=== PATIENT | female | born 1990 | race Caucasian/White ===

== ENCOUNTER 2018-08-26 18:55 | Inpatient (IN) | payer BC, OTHER ==
[~2018-08-26] VITALS: Ht 160 cm; Wt 59.0 kg
[2018-08-28 23:45] VITALS: BP 128/91
[2018-08-29] VITALS (7 sets, daily range): BP systolic 95–136; BP diastolic 58–86
[2018-08-29] MEDS ORDERED: DIAZEPAM 10 MG TABLET PO PRN ×2 (00:15)
[2018-08-29] MEDS ORDERED: ONDANSETRON 4 MG/2 ML VIAL IM PRN (00:15)
[2018-08-29] MEDS ORDERED: LORAZEPAM 2 MG/1 ML VIAL IM PRN (00:15)
[2018-08-29] MEDS ORDERED: MAG HYDROX/AL HYDROX/SIMETH 30 ML LIQUID UDC PO PRN (00:15)
[2018-08-29] MEDS ORDERED: MAGNESIUM HYDROXIDE 30 ML LIQUID UDC PO PRN (00:15)
[2018-08-29] MEDS ORDERED: diphenhydrAMINE 50 MG CAPSULE PO PRN (00:15)
[2018-08-29] MEDS ORDERED: DIAZEPAM 5 MG TABLET PO PRN (00:15)
[2018-08-29] MEDS ORDERED: DICYCLOMINE HCL 20 MG TABLET PO PRN (00:15)
[2018-08-29] MEDS ORDERED: LOPERAMIDE HCL 2 MG CAPSULE PO PRN ×2 (00:15)
[2018-08-29 01:29] LABS: *URINE HCG, QUAL NEGATIVE (NEGATIVE)
[2018-08-29] MEDS ORDERED: THIAMINE HCL 200 MG/2 ML VIAL IM ONE (01:30)
[2018-08-29 01:45] LABS: *AMPHETAMINE, URINE NEGATIVE (NEGATIVE); *BARBITURATE, URINE NEGATIVE (NEGATIVE); *CANNABINOID, URINE NEGATIVE (NEGATIVE); *COCCAINE, URINE NEGATIVE (NEGATIVE); *OPIATE, URINE NEGATIVE (NEGATIVE); *PHENCYCLIDINE SCREEN,URINE NEGATIVE (NEGATIVE)
[2018-08-29 02:15] LABS: BASOPHILS # (AUTO) 0.1 K/uL (0.0-8.0); BASOPHILS % (AUTO) 0.7 % (0.0-2.0); EOSINOPHILS % (AUTO) 0.2 % (0.0-7.0); HEMATOCRIT 42.2 % (31.2-41.9); HEMOGLOBIN 14.6 g/dL (10.9-14.3); LYMPHOCYTES # (AUTO) 3.5 K/uL (20.0-40.0); LYMPHOCYTES % (AUTO) 38.3 % (20.5-51.5); MEAN CORPUSCULAR HEMOGLOBIN 33.5 uug (24.7-32.8); MEAN CORPUSCULAR HGB CONC 35 g/dL (32.3-35.6); MEAN CORPUSCULAR VOLUME 96.5 fL (75.5-95.3); MONOCYTES # (AUTO) 0.4 K/uL (2.0-10.0); MONOCYTES % (AUTO) 4.2 % (0.0-11.0); NEUTROPHILS # (AUTO) 5.2 K/uL (1.8-8.9); NEUTROPHILS % (AUTO) 56.6 % (38.5-71.5); PLATELET COUNT (AUTO) 178 K/uL (179-408); RED BLOOD CELL COUNT(AUTO) 4.37 MIL/uL (3.63-4.92); WHITE BLOOD COUNT (AUTO) 9.2 K/uL (3.8-11.8)
[2018-08-29 02:30] LABS: BILIRUBIN,TOTAL 0.4 mg/dL (0.2-1.0); CREATININE 0.9 mg/dL (0.6-1.3); MAGNESIUM 1.9 mg/dL (1.8-2.4); POTASSIUM 3.6 mmol/L (3.5-5.1)
[2018-08-29] MEDS ORDERED: DIAZEPAM 10 MG TABLET PO ONE (02:30)
[2018-08-29 02:38] LABS: THYROID STIMULATING HORMONE 3.179 mIU/mL (0.358-3.740)
[2018-08-29] MEDS: CLONIDINE HCL 0.1 MG TABLET PO PRN ×3 (03:13→18:30)
[2018-08-29] MEDS: IBUPROFEN 600 MG TABLET PO PRN (03:14)
[2018-08-29] MEDS ORDERED: FAMO-132 PO (04:11)
[2018-08-29] MEDS ORDERED: ALPR1TAB PO (04:11)
[2018-08-29] MEDS ORDERED: [UNRECOGNIZED DRUG - OTHER] TOP (04:11)
[2018-08-29] MEDS ORDERED: METR70GE2 VG (04:11)
[2018-08-29] MEDS ORDERED: TRAN650T2 PO (04:11)
[2018-08-29] MEDS ORDERED: DIAZ10TA4 PO (04:11)
[2018-08-29] MEDS ORDERED: LORA10TA7 PO (04:11)
[2018-08-29] MEDS ORDERED: VALA500T PO (04:20)
[2018-08-29] MEDS: HYDROXYZINE PAMOATE 25 MG CAPSULE PO PRN ×3 (08:13→21:25)
[2018-08-29] MEDS: THIAMINE HCL 100 MG TABLET PO SCH (08:15)
[2018-08-29] MEDS: MULTIVITAMINS,THERAPEUTIC TABLET PO SCH (08:15)
[2018-08-29] MEDS: FOLIC ACID 1 MG TABLET PO SCH (08:16)
[2018-08-29] MEDS ORDERED: 5 DAY PHENOBARBITAL TAPER -SERENITY PROTOCOL PO PRN (10:30)
[2018-08-29] MEDS: PHENOBARBITAL 60 MG TABLET PO SCH ×3 (12:01→20:40)
[2018-08-29] MEDS: ONDANSETRON ODT 4 MG TAB.RAPDIS SL PRN (12:06)
[2018-08-30 01:40] VITALS: BP 108/71
[2018-08-30] MEDS: CLONIDINE HCL 0.1 MG TABLET PO PRN ×3 (01:47→17:12)
[2018-08-30] MEDS: HYDROXYZINE PAMOATE 25 MG CAPSULE PO PRN ×3 (04:58→21:37)
[2018-08-30] MEDS: IBUPROFEN 600 MG TABLET PO PRN ×2 (04:58→17:12)
[2018-08-30] MEDS: MIRALAX 17 GM POWD.PACK PO PRN (05:00)
[2018-08-30 08:00] VITALS: BP 106/74
[2018-08-30] MEDS: THIAMINE HCL 100 MG TABLET PO SCH (08:40)
[2018-08-30] MEDS: MULTIVITAMINS,THERAPEUTIC TABLET PO SCH (08:40)
[2018-08-30] MEDS: ACETAMINOPHEN 325 MG TABLET PO PRN ×2 (08:40→17:12)
[2018-08-30] MEDS: PHENOBARBITAL 60 MG TABLET PO SCH ×4 (08:41→20:25)
[2018-08-30] MEDS ORDERED: TUBERCULIN,PURIF.PROT.DERIV. 5 TU/0.1 ML TEST ID ONE (09:00)
[2018-08-30 09:06] LABS: HEPATITIS B SURFACE AG Negative (Negative)
[2018-08-30] MEDS: FOLIC ACID 1 MG TABLET PO SCH (09:13)
[2018-08-30] MEDS: ONDANSETRON ODT 4 MG TAB.RAPDIS SL PRN (10:09)
[2018-08-30 12:00] VITALS: BP 120/64
[2018-08-30 16:49] VITALS: BP 119/67
[2018-08-30 20:06] VITALS: BP 105/73
[2018-08-31 00:01] VITALS: BP 101/70
[2018-08-31] MEDS: MIRALAX 17 GM POWD.PACK PO PRN (00:41)
[2018-08-31] MEDS: CLONIDINE HCL 0.1 MG TABLET PO PRN ×3 (00:43→20:49)
[2018-08-31] MEDS ORDERED: METHOCARBAMOL 750 MG TABLET PO ONE (05:00)
[2018-08-31 08:00] VITALS: BP 108/60
[2018-08-31] MEDS: HYDROXYZINE PAMOATE 25 MG CAPSULE PO PRN ×2 (08:15→17:11)
[2018-08-31] MEDS: PHENOBARBITAL 60 MG TABLET PO SCH ×3 (08:15→20:49)
[2018-08-31] MEDS: IBUPROFEN 600 MG TABLET PO PRN (08:15)
[2018-08-31] MEDS: THIAMINE HCL 100 MG TABLET PO SCH (09:00)
[2018-08-31] MEDS: MULTIVITAMINS,THERAPEUTIC TABLET PO SCH (09:00)
[2018-08-31] MEDS: FOLIC ACID 1 MG TABLET PO SCH (09:00)
[2018-08-31 12:00] VITALS: BP 101/64
[2018-08-31 16:30] VITALS: BP 104/60
[2018-08-31 20:00] VITALS: BP 113/65
[2018-08-31] MEDS: TRAZODONE 50 MG TABLET PO PRN (20:49)
[2018-09-01] VITALS: BP 110/76
[2018-09-01 04:00] VITALS: BP 106/68
[2018-09-01 08:00] VITALS: BP 98/71
[2018-09-01] MEDS: HYDROXYZINE PAMOATE 25 MG CAPSULE PO PRN ×2 (08:44→15:14)
[2018-09-01] MEDS: THIAMINE HCL 100 MG TABLET PO SCH (08:45)
[2018-09-01] MEDS: PHENOBARBITAL 60 MG TABLET PO SCH ×2 (08:45→20:20)
[2018-09-01] MEDS: FOLIC ACID 1 MG TABLET PO SCH (08:45)
[2018-09-01] MEDS: MULTIVITAMINS,THERAPEUTIC TABLET PO SCH (08:45)
[2018-09-01] MEDS: CLONIDINE HCL 0.1 MG TABLET PO PRN ×2 (12:06→20:21)
[2018-09-01 12:31] VITALS: BP 137/90
[2018-09-01 16:30] VITALS: BP 114/72
[2018-09-01 20:00] VITALS: BP 112/74
[2018-09-01] MEDS: TRAZODONE 50 MG TABLET PO PRN (20:20)
[2018-09-02] VITALS: BP 110/78
[2018-09-02] MEDS: HYDROXYZINE PAMOATE 25 MG CAPSULE PO PRN ×4 (00:48→21:06)
[2018-09-02 04:00] VITALS: BP 105/69
[2018-09-02 08:06] VITALS: BP 96/64
[2018-09-02] MEDS ORDERED: PHENOBARBITAL 60 MG TABLET PO SCH (09:00)
[2018-09-02] MEDS: FOLIC ACID 1 MG TABLET PO SCH (09:00)
[2018-09-02] MEDS: MULTIVITAMINS,THERAPEUTIC TABLET PO SCH (09:00)
[2018-09-02] MEDS: THIAMINE HCL 100 MG TABLET PO SCH (09:00)
[2018-09-02] MEDS: CLONIDINE HCL 0.1 MG TABLET PO PRN ×2 (10:13→17:52)
[2018-09-02 12:17] VITALS: BP 104/63
[2018-09-02] MEDS ORDERED: TRAZ-213 PO (14:55)
[2018-09-02] MEDS ORDERED: CLON0.1T14 PO (14:55)
[2018-09-02] MEDS ORDERED: HYDR-3895 PO (14:55)
[2018-09-02 16:00] VITALS: BP 113/87
[2018-09-02 20:00] VITALS: BP 104/62
[2018-09-02] MEDS: TRAZODONE 50 MG TABLET PO PRN (21:06)
[2018-09-03] VITALS: BP 99/60
[2018-09-03 04:00] VITALS: BP 101/63
[2018-09-03] MEDS: HYDROXYZINE PAMOATE 25 MG CAPSULE PO PRN (08:00)
[2018-09-03] MEDS: FOLIC ACID 1 MG TABLET PO SCH (08:01)
[2018-09-03] MEDS: THIAMINE HCL 100 MG TABLET PO SCH (08:01)
[2018-09-03] MEDS: MULTIVITAMINS,THERAPEUTIC TABLET PO SCH (08:01)
[2018-09-03 08:17] VITALS: BP 127/81
== END 2018-09-03 09:34 | disposition other institution (70) | DRG 895 ==
LOC: SRC 08-28 22:36
PROVIDERS: ADMIT Family Medicine Addiction Medicine; ATTEND Internal Medicine
PROC: HZ2ZZZZ Detoxification Services for Substance Abuse Treatment (ICD-10-PCS; principal; 2018-08-28)
PROC: HZ59ZZZ Individual Psychotherapy for Substance Abuse Treatment, Supportive (ICD-10-PCS; 2018-08-30)
PROC: HZ41ZZZ Group Counseling for Substance Abuse Treatment, Behavioral (ICD-10-PCS; 2018-08-30)
PROC: HZ31ZZZ Individual Counseling for Substance Abuse Treatment, Behavioral (ICD-10-PCS; 2018-09-01)
DX: F10.230 Alcohol dependence with withdrawal, uncomplicated (principal); F31.30 Bipolar disorder, current episode depressed, mild or moderate severity, unspecified; F13.90 Sedative, hypnotic, or anxiolytic use, unspecified, uncomplicated; Y90.6 Blood alcohol level of 120-199 mg/100 ml; F90.9 Attention-deficit hyperactivity disorder, unspecified type; F17.210 Nicotine dependence, cigarettes, uncomplicated; F41.1 Generalized anxiety disorder; D69.6 Thrombocytopenia, unspecified; A60.00 Herpesviral infection of urogenital system, unspecified; Z81.1 Family history of alcohol abuse and dependence; Z81.8 Family history of other mental and behavioral disorders; F41.0 Panic disorder [episodic paroxysmal anxiety]; M54.5 Low back pain; K21.9 Gastro-esophageal reflux disease without esophagitis; F12.90 Cannabis use, unspecified, uncomplicated
CPT/HCPCS: 36415; 70030-TC; 80307; 80346; 83690; 83735; 84443; 84703; 85025; 86592; 86705; 86803; 87340; 87806; G0480; J8499; Q0162